=== PATIENT | male | born 1940 | race Caucasian/White ===

== ENCOUNTER → 2018-08-06 | Outpatient (REF) | payer MEDICARE ==
[~2018-08-06] MED LIST: ASPIRIN ADULT L81 M2 PO; ATENOLOL50 MG OR; ATENOLOL50 MG PO; BACTRIM DS1 TAB PO; BAYER ASPIRIN325 MG PO; CLOPIDOGREL75 MG PO; COUMADIN2.5 MG PO; COUMADIN5 MG PO; CRESTOR10 MG PO; CRESTOR5 MG OR; FLUARIX QUADRIV1 INJ IM; FLUZONE SPLT1 M1 IM; FLUZONE1 M1 IM; HYDROCHLORO25 MG/TAB PO; HYDROCHLOROT12.5 M1 OR; HYDROCHLOROT12.5 MG PO; HYDROCHLOROT25 MG PO; KLOR-CON M1010 MEQ OR; LISINOPRIL10 MG PO; LISINOPRIL5 MG PO; LOPRESSOR 550 MG/TAB PO; LORTAB 5/3255 MG PO; NEXIUM20 M1 PO; NEXIUM20 MG PO; OMEPRAZOLE20 M1 PO; PERCOCET 5/325M1 TAB OR; PLAVIX75 MG OR; PLAVIX75 MG PO; PRAVASTATIN SOD40 MG PO; PRAVASTATIN20 MG PO; PRILOSEC20 MG OR; PRILOSEC20 MG PO; TENORMIN50 MG PO; TYLENOL # 31 TA1 PO; TYLENOL500 MG OR; ULTRAM50 MG PO; WARFARIN5 MG PO
[2018-08-06 07:40] LABS: HEMOGLOBIN 13.9 g/dl (14.0-18.0); IMMATURE GRANULOCYTES 0.2 % (0.0-5.0); MEAN CELL VOLUME 95.3 fL CALC (80.0-100.0); MEAN CORPUSCULAR HGB 29.4 pG CALC (26.0-32.0); MEAN CORPUSCULAR HGB CONC 30.9 g/L CALC (32.0-36.0); NEUT# 4.72 thou/uL (1.82-7.42); RED BLOOD COUNT 4.72 mill/uL (4.70-6.10)
[2018-08-06 08:21] LABS: ALBUMIN 3.8 g/dL (3.2-5.0); BILIRUBIN, TOTAL 0.9 mg/dL (0.0-1.4); CREATININE 1.6 mg/dL (0.7-1.3); POTASSIUM 3.8 mmol/l (3.5-5.1); TOTAL PROTEIN 6.2 g/dL (6.3-8.2)
== END | disposition home or self-care (01) ==
LOC: LAB 06:49
PROVIDERS: ATTEND Internal Medicine Geriatric Medicine
DX: E78.2 Mixed hyperlipidemia (principal); I10 Essential (primary) hypertension; K21.9 Gastro-esophageal reflux disease without esophagitis

== ENCOUNTER 2020-11-21 04:48 | Inpatient (IN) | payer MEDICARE ==
[~2020-11-21] VITALS: Ht 190.5 cm; Wt 96.0 kg
--- NOTE | 2020-11-21 04:51 | NUR ---
BY WC TO ROOM
[2020-11-21 05:49] LABS: HEMATOCRIT 46.1 % (39.0-50.0); HEMOGLOBIN 14.6 g/dl (14.0-18.0); IMMATURE GRANULOCYTES 0.3 % (0.0-5.0); MEAN CELL VOLUME 100.9 fL CALC (80.0-100.0); MEAN CORPUSCULAR HGB 31.9 pG CALC (26.0-32.0); MEAN CORPUSCULAR HGB CONC 31.7 g/dL CAL (32.0-36.0); NEUT# 3.64 thou/uL (1.82-7.42); RED BLOOD COUNT 4.57 mill/uL (4.70-6.10); RED CELL DISTRI WIDTH 15.2 % (11.5-15.5)
--- NOTE | 2020-11-21 06:00 | NUR ---
PT COMPLAINS OF LLE FOOT/ANLKE DISCMFORT, DENIES TRAUMA OR INJURY, VISITOR AT BEDSIDE, PT MODOC WITH LOUD VERBALIZATION REQUIRED.
[2020-11-21 06:02] LABS: ALBUMIN 3.2 g/dL (3.2-5.0); ALKALINE PHOSPHATASE 86 u/l (38-126); ANION GAP 9 (6-22 (CALC)); BILIRUBIN, TOTAL 1.3 mg/dL (0.0-1.4); BUN 12 mg/dL (8-23); BUN/CREATININE RATIO 9 (12-20 (CALC)); CARBON DIOXIDE 28 mmol/l (22-30); CHLORIDE 102 mmol/l (95-108); CREATININE 1.3 mg/dL (0.7-1.3); GFR 53 ML/MIN (>=60 (CALC)); GFR FOR AFR.AMER. > 60 ML/MIN (>=60 (CALC)); POTASSIUM 4.1 mmol/l (3.5-5.1); SGOT/AST 29 u/l (19-48); SODIUM 135 mmol/l (137-146); TOTAL PROTEIN 5.9 g/dL (6.3-8.2)
[2020-11-21 06:07] LABS: ACT PARTIAL THROMBO TIME 22.9 SECONDS (20.0-32.5)
[2020-11-21 06:10] LABS: INTERNATIONAL NORMALIZED RATIO 1.1 RATIO (0.7-1.3); PROTHROMBIN TIME 11.3 SECONDS (9.0-12.5)
--- NOTE | 2020-11-21 06:40 | NUR ---
PT RESTING, AWARE OF AWAITING RADILOGUY RESULTS, CALL RADHA TODD
--- NOTE | 2020-11-21 06:59 | NUR ---
RECEIVED REPORT FROM ANGELA AGUILAR.
--- NOTE | 2020-11-21 08:00 | NUR ---
MD AT BEDSIDE TO DISCUSS RESULTS AND POC.
--- NOTE | 2020-11-21 08:12 | NUR ---
REPORT GIVEN TO ROLANDO AGUILAR.
--- NOTE | 2020-11-21 08:12 | NUR ---
PATIENT ASSISTED TO STAND AND USE URINAL, 250 CLEAR YELLOW URINE OUT. STANDBY ASSISTED ONLY. PATIENT THEN PLACED INGOWN. PLAN OF CARE REVIEWED, VSS. BED LOCKED AND IN LOWEST POSITION, DAUGHTER AT BEDSIDE. CALL LIGHT IN REACH. PT AND DAUGHTER UNDERSTNAD AND VERBALZE PLAN. MEDS RECONCILED.
--- NOTE | 2020-11-21 08:30 | NUR ---
CLOTHING GIVEN TO DAUGHTER IN PATIENT BELONGING BAG.
[2020-11-21 08:44] LABS: URINE BILIRUBIN - DIPSTICK NEGATIVE (NEGATIVE); URINE BLOOD DIPSTICK TRACE-INTACT (NEGATIVE); URINE COLOR YELLOW; URINE GLUCOSE - DIPSTICK NEGATIVE (NEGATIVE); URINE KETONE NEGATIVE (NEGATIVE); URINE LEUK ESTERASE NEGATIVE (NEGATIVE); URINE PROTEIN - DIPSTICK NEGATIVE (NEG-TRACE); URINE SPECIFIC GRAVITY 1.015
[2020-11-21 08:45] LABS: URINE NITRITE - DIPSTICK NEGATIVE (Negative)
--- NOTE | 2020-11-21 09:43 | NUR ---
ATTEMPTED TO CALL REPORT, NURSE WILL CALL BACK.
--- NOTE | 2020-11-21 09:48 | NUR ---
REPORT RECEIVED FROM LAUREN MARSHALL
--- NOTE | 2020-11-21 09:56 | NUR ---
URINE OUTPUT TOTAL FOR THIS ER VISIT IS 1500 ML. CLEAR YELLOW URINE.
--- NOTE | 2020-11-21 09:56 | NUR ---
REPORT CALLED TO JEOVANNY. ALL QUESIONS ANSWERED
--- NOTE | 2020-11-21 10:03 | NUR ---
PT ARRIVED TO MED/SURG ROOM 270 IN STABLE CONDITION VIA WHEELCHAIR ACCOMPANIED BY LAUREN MARSHALL;PT ASSISTED TO BEDSIDE WITH X1 ASSIST;PT A&O X3, ORIENTED TO ROOM AND CALL LIGHT SYSTEM;PT NOTED TO BE [place];PT DENIES ANY CURRENT PAIN OR DISCOMFORTS,PAIN SCALE AND REPORTING EDUCATED;PT REPORT BLE SWELLING X2 DAYS WORSE LAST NIGHT;WT AND VS OBTAINED BY ANA CARRASCO;ASSESSMENT COMPLETED;RESPIRATIONS EVEN AND UNLABORED ON RA,CLEAR LUNG SOUNDS;ABDOMEN SOFT ON PALPATION AND ACTIVE IN ALL 4 QUADRANTS;WEAK PEDAL PULSES WITH +2 EDEMA TO BLE, ENCOURAGED ELEVATION OF BLE;SKIN INTACT;TELE MONITORING IN PLACE;#20G TO RAC FLUSHED AND PATENT,SITE APPEARS HEALTHY;FALL AND ALLERGY BAND APPLIED TO RIGHT ARM;PT DENIES ANY ADDITIONAL NEEDS AND IS ENCOURAGED TO CALL FOR ASSISTANCE IF NEEDED;FALL PRECAUTIONS IN PLACE WITH BED IN THE LOWEST POSITION AND CALL LIGHT IN REACH;WILL CONTINUE TO MONITOR
[2020-11-21 10:15] VITALS: BP 142/65
--- NOTE | 2020-11-21 11:28 | NUR ---
AT BEDSIDE DISCUSSING POC.
--- NOTE | 2020-11-21 12:00 | NUR ---
PT RESTING AT BEDSIDE EATING LUNCH;RESPIRATIONS EVEN AND UNLABORED ON RA;PT DENIES ANY CURRENT PAIN OR NEEDS;IV SITE PATENT;TELE MONITORING IN PLACE;ENCOURAGED TO CALL FOR ASSISTANCE IF NEEDED;FALL PRECAUTIONS IN PLACE WITH CALL LIGHT IN REACH;WILL CONTINUE TO MONITOR
--- NOTE | 2020-11-21 12:33 | NUR ---
SPOKE WITH DAUGHTER (ZINA) REGARDING MED LIST. ZINA IS CURRENLY NOT HOME BUT WILL CALL ME ONCE SHE HAS THE MED LIST AVAILABLE. NOTIFIED.PER MD DAILY BACK UNTIL RECENT MED REC IS REPORTED.WILL CONTINUE TO MONITOR
--- NOTE | 2020-11-21 14:18 | NUR ---
PT MEDICATED WITH PRN TYLENOL 650MG PO FOR HEADACHE PAIN RATING 2/10 ON THE PAIN SCALE,WILL CONTINUE TO MONITOR FOR EFFECTIVENESS
--- NOTE | 2020-11-21 14:46 | NUR ---
MED LIST PROVIDED BY DAUGHTER (ZINA) AND MED REC REVIEWED. NOTIFIED.
[2020-11-21 15:25] VITALS: BP 134/72
--- NOTE | 2020-11-21 16:45 | NUR ---
PT APPEARS TO BE SLEEPING IN SEMI FOWLERS POSITION;RESPIRATIONS EVEN AND UNLABORED ON RA;NO S/S OF DISTRESS NOTED;TELE MONITORING IN PLACE;IV SITE APPEARS PATENT;ALL SAFETY PRECAUTIONS REMAIN IN PLACE WITH BED IN THE LOWEST POSITION AND CALL LIGHT IN REACH;WILL CONTINUE TO MONITOR
--- NOTE | 2020-11-21 19:00 | NUR ---
REPORT RECEIVED FROM Glenn MCCRACKEN LPN, CARE OF PT ASSUMED AT THIS TIME.
[2020-11-21 20:00] VITALS: BP 128/74
--- NOTE | 2020-11-21 21:00 | NUR ---
PHYSICAL ASSESMENT COMPLETE. SEE SHIFT ASSESSMENT. PT STEBB[place]. PLEASANT AND COOPERATIVE. +1 EDEMA BLE. RESPIRATIONS REGULAR AND UNLABORED. SP02 97% ON ROOM AIR. SCHEDULED MEDICATIONS ADMINISTERED, SEE E-MAR. PT DENIES AT THIS TIME. PLAN OF CARE REVIEWED, PT VERBALIZES UNDERSTANDING. CALL GARCIA WITHIN REACH, AGREES TO CALL PRN.
[2020-11-22] VITALS: BP 137/79
[2020-11-22 00:10] VITALS: BP 180/83
--- NOTE | 2020-11-22 01:00 | NUR ---
PT APPEARS TO BE SLEEPING COMFORTABLY. LAYING IN BED WITH EYES CLOSED, GENTLY SNORING, RESPIRATIONS REGULAR AND UNLABORED. NO APPARENT DISTRESS. CALL GARCIA REMAINS WITHIN REACH.
--- NOTE | 2020-11-22 03:37 | NUR ---
TYLENOL ADMINSTERED PER PTS REQUEST FOR NECK AND BACK SORENESS. SEE E-MAR.
[2020-11-22 04:00] VITALS: BP 148/84
--- NOTE | 2020-11-22 04:44 | NUR ---
Chaz SWANSON, WHITE SOURER IN ROOM COLLECTING AM LAB WORK.
--- NOTE | 2020-11-22 04:45 | NUR ---
Chaz SWANSON, TEAM LEAD IN ROOM COLLECTING AM LAB WORK.
[2020-11-22 05:47] LABS: HEMATOCRIT 45.1 % (39.0-50.0); HEMOGLOBIN 14.1 g/dl (14.0-18.0); MEAN CORPUSCULAR HGB 31.9 pG CALC (26.0-32.0); MEAN CORPUSCULAR HGB CONC 31.3 g/dL CAL (32.0-36.0); RED BLOOD COUNT 4.42 mill/uL (4.70-6.10); RED CELL DISTRI WIDTH 15.1 % (11.5-15.5)
[2020-11-22 05:56] LABS: ALBUMIN 2.9 g/dL (3.2-5.0); ALKALINE PHOSPHATASE 89 u/l (38-126); ANION GAP 12 (6-22 (CALC)); BILIRUBIN, TOTAL 1.5 mg/dL (0.0-1.4); BUN 16 mg/dL (8-23); BUN/CREATININE RATIO 13 (12-20 (CALC)); CARBON DIOXIDE 26 mmol/l (22-30); CHLORIDE 99 mmol/l (95-108); CREATININE 1.2 mg/dL (0.7-1.3); GFR 58 ML/MIN (>=60 (CALC)); GFR FOR AFR.AMER. > 60 ML/MIN (>=60 (CALC)); MAGNESIUM 1.7 mg/dL (1.6-2.3); POTASSIUM 4.3 mmol/l (3.5-5.1); SGOT/AST 23 u/l (19-48); SODIUM 132 mmol/l (137-146); TOTAL PROTEIN 5.3 g/dL (6.3-8.2)
--- NOTE | 2020-11-22 07:15 | NUR ---
REPORT RECEIVED FROM LAUREN ALCARAZ
--- NOTE | 2020-11-22 09:20 | NUR ---
PT RESTING IN SEMI FOWLERS POSITION,A&O X3 BUT [place];VS OBTAINED AND ASSESSMENT COMPLETED;PT DENIES ANY CURRENT PAIN OR DISCOMFORTS,PAIN SCALE AND REPORTING EDUCATED;RESPIRATIONS EVEN AND UNLABORED ON RA,CLEAR LUNG SOUNDS;ABDOMEN SOFT ON PALPATION AND ACTIVE IN ALL 4 QUADRANTS;WEAK PEDAL PULSES,+1 EDEMA NOTED TO BLE;TELE MONITORING IN PLACE;#20G RAC FLUSHED AND PATENT,SITE APPEARS HEALTHY;PT DENIES ANY ADDITIONAL NEEDS AND IS ENCOURAGED TO CALL FOR ASSISTANCE IF NEEDED;FALL PRECAUTIONS IN PLACE WITH BED IN THE LOWEST POSITION AND CALL LIGHT IN REACH;WILL CONTINUE TO MONITOR
[2020-11-22 09:21] VITALS: BP 143/63
[2020-11-22 09:25] VITALS: BP 143/63
[2020-11-22] MEDS ORDERED: ELIQUIS2.5 MG PO (09:51)
[2020-11-22] MEDS ORDERED: PANTOPRAZOLE SO40 M1 PO (09:51)
[2020-11-22] MEDS ORDERED: LASIX20 MG PO (09:51)
--- NOTE | 2020-11-22 10:29 | NUR ---
AT BEDSIDE DISCUSSING POC.
--- NOTE | 2020-11-22 11:20 | NUR ---
PT OOB RESTING IN RECLINER;RESPIRATIONS EVEN AND UNLABORED ON RA;ALL DISCHARGE INSTRUCTIONS PROVIDED AT THIS TIME;PT INSTRUCTED TO TAKE MEDICATION DIRECTED, RX X3 SENT TO [facility]. PT ALSO EDUCATED TO F/U WITH PCP AND CARDIOLOGY;PT VERBALIZES UNDERSTANDING AND DENIES ANY ADDITIONAL QUESTIONS OR NEEDS;IV SITE REMOVED WITH CATHETER INTACT AND TELE MONITORING D/C;WHEELCHAIR TO BE PROVIDED FOR D/C HOME;DAUGHTER TO TRANSPORT PT HOME;WILL CONTINUE TO MONITOR
[2020-11-22] MEDS ORDERED: COLACE100 MG PO (11:22)
--- NOTE | 2020-11-22 11:55 | NUR ---
Discharge instructions given. Patient verbalizes understanding of same. Discharged in stable condition via Wheelchair to Home with family. All belongings sent with pt. PT TRANSPORTED TO [facility] IN STABLE CONDITION VIA WHEELCHAIR ACCOMPANIED BY THIS WRITTER AND DAUGHTER.ALL BELONGINGS LEFT WITH PT.DAUGHTER TO TRANSPORT PT HOME.
== END 2020-11-22 11:55 | DRG 291 ==
LOC: ED 04:48 → ED-I 08:00 → ED 09:31 → MS2 09:32
PROVIDERS: Emergency Medicine; Nurse Practitioner; ADMIT Internal Medicine; ATTEND Internal Medicine
DX: I11.0 Hypertensive heart disease with heart failure (principal); I50.21 Acute systolic (congestive) heart failure; C91.10 Chronic lymphocytic leukemia of B-cell type not having achieved remission; I48.91 Unspecified atrial fibrillation; I25.10 Atherosclerotic heart disease of native coronary artery without angina pectoris; E78.5 Hyperlipidemia, unspecified; S99.912A Unspecified injury of left ankle, initial encounter; X58.XXXA Exposure to other specified factors, initial encounter; Y93.A1 Activity, exercise machines primarily for cardiorespiratory conditioning; Z86.73 Personal history of transient ischemic attack (TIA), and cerebral infarction without residual deficits; Z90.3 Acquired absence of stomach [part of]; Z79.01 Long term (current) use of anticoagulants; Z20.822 Contact with and (suspected) exposure to COVID-19